=== PATIENT | male | born 1975 | race Hispanic/Latino ===

== ENCOUNTER 2024-07-22 19:53 | Emergency (ER) | payer SELFPAY ==
[~2024-07-22] VITALS: Ht 170.2 cm; Wt 88.9 kg
--- NOTE | 2024-07-22 20:17 | ERN ---
ED Note History of Present Illness Stated Complaint: FALL, POST ICU Time Seen by MD: 19:54 Dictation: PATIENT IS A 49-YEAR-OLD MALE COMING IN TODAY WITH COMPLAINTS OF LEFT MEDIAL KNEE PAIN HE HAS HAD FOR MORE THAN 10 DAYS. HE STATES HE FELL IN FOR WERE [place] NOT SURE WHETHER THEY X-RAYED HIM ARE NOT HOWEVER HE IS HAVING PAIN. HE HAS FULL WEIGHT-BEARING TO TRIAGE. DISTAL NEUROVASCULAR CMS INTACT NO ERYTHEMA NO SWELLING TO KNEE. Allergies: Coded Allergies: No Known Allergies (Unverified Allergy, Unknown, 07/22/24) Past Medical History RN Note Reviewed/Agreed w/PFSH: Yes Review of System Dictation CONSTITUTIONAL: NEGATIVE EXCEPT FOR HPI HEAD/FACE: NEGATIVE EXCEPT FOR HPI EENT: NEGATIVE EXCEPT FOR HPI RESPIRATORY: NEGATIVE EXCEPT FOR HPI GASTROINTESTINAL/ABDOMINAL: NEGATIVE EXCEPT FOR HPI GENITOURINARY: NEGATIVE EXCEPT FOR HPI MUSCULOSKELETAL: NEGATIVE EXCEPT FOR HPI LEFT MEDIAL KNEE PAIN INTEGUMENTARY: NEGATIVE EXCEPT FOR HPI NEUROLOGICAL/PSYCH: NEGATIVE EXCEPT FOR HPI HEMATOLOGIC/LYMPHATIC: NEGATIVE EXCEPT FOR HPI ALL SYSTEMS NEGATIVE, EXCEPT NOTED ABOVE. 13 POINT REVIEW OF SYSTEMS ASSESSED AND ALL NEGATIVE EXCEPT FOR ABOVE. Initial Vital Sign VS Vital Signs Date Time Temp Pulse Resp B/P (MAP) Pulse Ox O2 Delivery O2 Flow Rate FiO2 07/22/24 20:19 98.1 86 20 127/82 97 Room Air Physical Exam Dictation VITAL SIGNS REVIEWED GENERAL APPEARANCE: ALERT, ORIENTED X 3, MILD ACUTE DISTRESS, WELL DEVELOPED, NOURISHED. HEAD AND FACE: NON-TRAUMATIC. EYES: PERRL, PINK CONJUNCTIVAS, EYELID NO TRAUMA, ANTERIOR CHAMBER WITH ARCUS SENILIS. EARS: PINNAS INTACT AND NO SIGNS OF TRAUMA OR ERYTHEMA EAR CANALS CLEAR AND NO DISCHARGE TM NO ERYTHEMA NOSE: NO DISCHARGE, NO BLEEDING. OROPHARYNX: MOUTH NORMAL, TONGUE PINK, PHARYNX CLEAR,NO ERYTHEMA, TONSILS NO EXUDATES, NO ABSCESSES NOTED, MUCOUS MEMBRANE MOIST NECK: SUPPLE, NON-TENDER, NO THYROMEGALY, NO MASSES, NO JVD, NO BRUITS BREAST:DEFERRED CHEST:NO TENDERNESS, NO CREPITUS, NO PARADOXICAL MOVEMENT, NO RETRACTIONS LUNGS:CLEAR, WELL-VENTILATED, SYMMETRIC, NO RALES, NO WHEEZING, NO RHONCHI, NO STRIDOR, GOOD BREATH SOUNDS BILATERALLY HEART: REGULAR RATE, REGULAR RHYTHM, NO MURMUR, NO GALLOPS VASCULAR: NO PERIPHERAL EDEMA, ABDOMEN: SOFT, POSITIVE BOWEL SOUNDS, NONDISTENDED, NO GUARDING, NONTENDER, NO REBOUND, NO MASSES NO HEPATOMEGALY, NO SPLENOMEGALY, NO KUMAR'S SIGN, NO HERNIAS. RECTAL: DEFERRED GENITAL: DEFERRED NEUROLOGICAL: NORMAL SPEECH, MOTOR FUNCTION INTACT, SENSORY FUNCTION INTACT MUSCULOSKELETAL: NECK NONTENDER, FULL RANGE OF MOTION, BACK NONTENDER, FULL RANGE OF MOTION, EXTREMITIES: LEFT MEDIAL KNEE PAIN WITH PALPATION. NO CREPITATION NO ERYTHEMA NO SWELLING SKIN: COLOR PINK, DRY, NO TURGOR, NO RASH, NO LACERATIONS, NO ABRASIONS, NO CONTUSIONS. LYMPHATIC: DEFERRED Results (Laboratory/Radiology) Laboratory/Radiology EE 3VWS LT HISTORY: Left medial knee pain COMPARISON: None TECHNIQUE: 3 images of the left knee were obtained. FINDINGS: There is no acute displaced fracture or dislocation. Mild degenerative changes are seen. IMPRESSION: 1. Findings as described above. Labs Reviewed?: Yes ED Course ED Course Orders Procedure Category Date Status Time Ketorolac 60mg/2ml PHA 07/22/24 Complete (Toradol 60mg/2ml) 20:30 Knee 3vws Lt RAD 07/22/24 Resulted 20:14 Current Medications Medications (Trade) Dose Ordered Sig/Valeri Route PRN Reason Start Time Stop Time Status Last Admin Dose Admin Ketorolac Tromethamine (toRADol 60MG/ 2ML) 60 mg ONCE ONCE IM 07/22/24 20:30 07/22/24 20:31 DC 07/22/24 20:46 Vital Signs Date Time Temp Pulse Resp B/P (MAP) Pulse Ox O2 Delivery O2 Flow Rate FiO2 07/22/24 20:19 98.1 86 20 127/82 97 Room Air Medical Decision Making [facility] MEDICAL DISCHARGE MAKING BASED ON PAIN MANAGEMENT AND X-RAY OF LEFT KNEE. LEFT KNEE X-RAY NEGATIVE READ NEGATIVE BY RADIOLOGIST DISCHARGED HOME WITH DJD LEFT KNEE GIVEN PREDNISONE AND IBUPROFEN TOLD FOLLOW UP WITH DX & DISP Disposition: Discharge Departure Impression: Primary Impression: Left knee DJD Condition: Stable Scripts Prednisone (Prednisone) 20 Mg Tablet 1 TAB PO AD for 6 Days, #14 TAB 0 Refills TAKE 1 TAB BY MOUTH THREE TIMES PER DAY X3 DAYS, THEN TAKE 1 TAB BY MOUTH TWICE A DAY X2 DAYS, THEN TAKE 1 TAB BY MOUTH ONCE A DAY X1 DAY. TAKE WITH FOOD Prov: MIGUEL ÁNGEL VILLATORO [facility] 07/22/24 Ibuprofen (Ibuprofen 800 mg Tab) 800 Mg Tab 800 MG PO Q8H PRN for fever or pain, #30 TAB 0 Refills Prov: MIGUEL ÁNGEL VILLATORO NP 07/22/24 Additional Instructions: FOLLOW-UP WITH PRIMARY CARE PROVIDER IN 1 TO 2 DAYS. TAKE MEDICATIONS DIRECTED HERE IN THE EMERGENCY ROOM. OKAY TO CONTINUE HOME MEDICATIONS UNLESS OTHERWISE DISCUSSED DURING YOUR VISIT IN THE EMERGENCY ROOM TODAY. RETURN TO YOUR NEAREST EMERGENCY ROOM IF SYMPTOMS WORSEN OR IF THERE IS NO IMPROVEMENT. CALL 911 IF YOU NEED IMMEDIATE ASSISTANCE. TAKE TYLENOL OR MOTRIN [id number] NEEDED AND IF NO CONTRAINDICATIONS ARE PRESENT. INCREASE ORAL HYDRATION. A WOUND CULTURE OR URINE CULTURE WAS ORDERED HERE IN THE EMERGENCY ROOM DEPARTMENT PLEASE FOLLOW-UP WITH PRIMARY CARE PROVIDER AND ADVISE THEM TO GET REPEAT PORTS FROM OUR FACILITY. IF YOU HAD ANY CORINNE WRAP/SPLINTS THAT WERE APPLIED HERE, PLEASE DO NOT REMOVE THEM UNTIL YOU SEE YOUR PRIMARY CARE OR SPECIALTY. TAKE IBUPROFEN EVERY 8 HOURS NEEDED WITH FOOD FOR PAIN. TAKE PREDNISONE DIRECTED UNTIL GONE. CALL ORTHOPEDIC SURGEON NEEDED FOR THE NEXT ONE TWO DAYS FOR FOLLOW UP AND MANAGEMENT Referrals: SELF,REFERRAL (PCP) ANJANA JOHNSON MD Time of Disposition: 21:28 I have reviewed the case, and I agree with, Diagnosis and Plan MIGUEL ÁNGEL VILLATORO NP July 22, 2024 20:17
[2024-07-22] MEDS: ketOROlac 60 MG VIAL (30MG/ML) IM ONE (20:46)
--- NOTE | 2024-07-22 21:14 | HMCIMG ---
KNEE 3VWS LT HISTORY: Left medial knee pain COMPARISON: None TECHNIQUE: 3 images of the left knee were obtained. FINDINGS: There is no acute displaced fracture or dislocation. Mild degenerative changes are seen. IMPRESSION: 1. Findings as described above.
[2024-07-22] MEDS ORDERED: IBUP-2077 PO (21:30)
[2024-07-22] MEDS ORDERED: PRED20TA3 PO (21:30)
[2024-07-22 21:31] VITALS: BP 121/79; PULSE 84; RESP 18; TEMP 98.1; O2SAT 97
== END 2024-07-22 21:36 | disposition home or self-care (01) ==
LOC: EDH 19:53
DX: M17.12 Unilateral primary osteoarthritis, left knee (principal)
CPT/HCPCS: 99283; 73562; 96372; J1885

== ENCOUNTER 2024-08-03 02:38 | Emergency (ER) | payer SELFPAY ==
[~2024-08-03] VITALS: Ht 170.2 cm; Wt 89.8 kg
[~2024-08-03 02:38] MED LIST: IBUP-2077 PO; PRED20TA3 PO
[2024-08-03 03:28] VITALS: TEMP 98.8
[2024-08-03 04:19] VITALS: BP 128/64; PULSE 97; RESP 16; O2SAT 97
[2024-08-03] MEDS ORDERED: KETO10 PO (04:20)
--- NOTE | 2024-08-03 04:27 | ERN ---
General Chief Complaint: Knee Injury/Swelling Stated Complaint: LEFT KNEE PAIN Time Seen by MD: 02:48 Source: patient History of Present Illness Initial Comments Patient is a 49-year-old male with left knee pain. He describes it as if a nail is being pushed underneath his kneecap. He has been seen in his ED 12 days ago for the similar concern. He was discharged with 800 mg of ibuprofen, and the pain went away. Then today sitting on the couch, the pain started on the left lateral knee and ibuprofen could not relieve the pain. Note the patient had orthopedic surgery on his right tibial plateau approximately 12 years ago. Timing/Duration: getting worse Allergies: Coded Allergies: No Known Allergies (Unverified Allergy, Unknown, 07/22/24) Home Meds Active Scripts Prednisone (Prednisone) 20 Mg Tablet, 1 TAB PO AD for 6 Days, #14 TAB 0 Refills TAKE 1 TAB BY MOUTH THREE TIMES PER DAY X3 DAYS, THEN TAKE 1 TAB BY MOUTH TWICE A DAY X2 DAYS, THEN TAKE 1 TAB BY MOUTH ONCE A DAY X1 DAY. TAKE WITH FOOD Prov:MIGUEL ÁNGEL VILLATORO NP 07/22/24 Ibuprofen (Ibuprofen 800 mg Tab) 800 Mg Tab, 800 MG PO Q8H PRN for fever or pain, #30 TAB 0 Refills Prov:MIGUEL ÁNGEL VILLATORO NP 07/22/24 Past Medical History Past Medical History: Anxiety, Bipolar, High Cholesterol, Schizophrenia Past Surgical History: None Surgical History Other: Right Knee Surgery Constitutional: (-) chills, (-) diaphoresis, (-) fever, (-) malaise, (-) weakness, (-) other documentation EENTM: (-) eye pain, (-) blurred vision, (-) tearing, (-) double vision, (-) ear pain, (-) ear discharge, (-) nose pain, (-) nose congestion, (-) throat pain, (-) Throat swelling, (-) mouth pain, (-) tooth pain, (-) mouth swelling, ( -) other documentation Respiratory: (-) cough, (-) orthopnea, (-) short of breath, (-) stridor, (-) wheezing, (-) other documentation Cardiovascular: (-) chest pain, (-) edema, (-) palpitations, (-) syncope, (-) dyspnea on exertion, (-) other documentation Gastrointestinal/Abdominal: (-) nausea, (-) vomiting, (-) diarrhea, (-) abdominal pain, (-) abdominal distention, (-) constipation, (-) rectal bleeding, (-) dark stool/melena, (-) other documentation Genitourinary: (-) penile discharge, (-) dysuria, (-) frequency, (-) hematuria, (-) pain, (-) other documentation Musculoskeletal: (-) Neck pain, (-) back pain, (-) Flank Pain, (-) joint pain, (-) joint swelling, (-) muscle pain, (-) muscle stiffness, (-) gout, (-) other documentation Skin: (-) laceration, (-) contusion, (-) abrasion, (-) abscess, (-) rash, (-) change in color, (-) change in hair, (-) change in nails, (-) diaphoresis, (-) dryness, (-) other documentation Neuro: (-) altered mental status, (-) headache, (-) syncope, (-) paralysis, (-) numbness, (-) seizure, (-) pre-existing deficit, (-) tremors, (-) weakness, (-) dizziness, (-) slurred speech, (-) vertigo, (-) other documentation Physical Exam General Appearance: (+) moderate distress Orientation: (+) alert Eye: bilateral eye normal inspection, bilateral eye PERRL, bilateral eye EOMI Ear, Nose, Throat: (+) hearing grossly normal, (+) normal ENT inspection Neck: (+) normal inspection Extremities Comment Patient's left knee has no swelling no erythema no difficulty ranging his left knee. He can flex extend with no pain. Anterior and posterior drawer signs are negative. Patient has no medial or lateral ligamentous instability. MDM I do not think the pt's pain is spinal cord related as he is experiencing pain rather than weakness or numbness. Also, pt is young to have spinal stenosis. I will order plain films of his knees to compare them to his prior films. Patient's left knee films look almost identical to the ones from 07/22 of this year. The official read on those films was mild degenerative changes. The degree of degenerative changes to me do not warrant steroid injections. Instead the patient needs physical rehabilitation and leg strengthening exercises. 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 All of these diseases are best treated with physical therapy. I will give the patient some low-dose oral ketorolac for a week. This will give him time to see a physical therapist. In the meantime I showed him some strengthening exercises for his anterior thigh muscles that may help with the pain. ED Course Orders Procedure Category Date Status Time Knee 3vws Lt RAD 08/03/24 Taken 03:10 Vital Signs Date Time Temp Pulse Resp B/P (MAP) Pulse Ox O2 Delivery O2 Flow Rate FiO2 08/03/24 03:28 98.8 106 16 125/73 97 Room Air* 0 21 08/03/24 02:44 100.4 123 20 149/82 98 Room Air DX & DISP Disposition: Discharge Departure Impression: Primary Impression: Left knee DJD Condition: Stable Scripts Ketorolac Tromethamine (Toradol) 10 Mg Tab 1 TAB PO TID for pain for 5 Days, #15 TAB 0 Refills Prov: JOHAN JON MD 08/03/24 Referrals: SELF,REFERRAL (PCP) JOHAN JON MD August 03, 2024 04:27
[2024-08-03] MEDS ORDERED: MELO-106 PO (04:28)
[2024-08-03] MEDS ORDERED: ketOROlac 30MG VIAL (30MG/ML) IVP ONE (04:30)
[2024-08-03] MEDS: ketOROlac 60 MG VIAL (30MG/ML) IM ONE (04:44)
--- NOTE | 2024-08-03 04:45 | NUR ---
APPROACHED BY MOTHER OF PATIENT AT NURSES STATION AND VOICED CONCERN, STATING SHE IS AFRAID OF THE PATIENT AND IS REQUESTING THAT THE ER MD PROVIDE SLEEP MEDICATION. PT AAOX4. PATIENT DID NOT EXPRESS ANY HI/SI IDEATION DURING ASSESSMENT. PT COMPLAINED OF LT KNEE PAIN AND WAS EVALUATED ACCORDING TO THE CHIEF COMPLAINT. PATIENT REMAINED CALM, COOPERATIVE, AND NON-AGGRESSIVE THROUGHOUT THE ER VISIT AND WAS COMPLIANT WITH STAFF. ER MD MADE AWARE OF MOTHER'S CONCERNS AND PATIENT STATUS.
--- NOTE | 2024-08-03 08:59 | HMCIMG ---
Exam Type: KNEE 3VWS LT Clinical Information: pain Comparison: None Findings: The bone examination is unremarkable. No fractures or dislocations are seen. No radiopaque foreign bodies are noted. Soft tissues are preserved. IMPRESSION: Normal examination.
== END 2024-08-03 04:50 | disposition home or self-care (01) ==
LOC: EDH 02:38
DX: M17.12 Unilateral primary osteoarthritis, left knee (principal); E78.00 Pure hypercholesterolemia, unspecified; F20.9 Schizophrenia, unspecified; F31.9 Bipolar disorder, unspecified; Z79.899 Other long term (current) drug therapy
CPT/HCPCS: 99283; 73562; 96372; J1885